=== PATIENT | female | born 1940 | race Caucasian/White ===

== ENCOUNTER 2018-07-28 09:53 | Emergency (ER) | payer MEDICARE ==
[~2018-07-28] VITALS: Ht 162.6 cm; Wt 53.5 kg
[2018-07-28 09:56] VITALS: Ht 162.6 cm; Wt 53.5 kg
--- NOTE | 2018-07-28 10:53 | ERD ---
ER Documentation Chief Complaint Chief Complaint palpitations with vomiting and head pain x 3 days HPI This is a 77-year-old woman complaining of chest discomfort and shortness of breath beginning Thursday, 3 days ago, shortly after a long drive back from [place]. She traveled here from [place] about 2 months ago but had no symptoms after air travel. Patient states since then she has had a mild nonproductive cough but no fevers or chills, no chest pain, no headache or blurry vision. Patient states today she felt a little bit weak and had mild shortness of breath and came here for evaluation. She denies calf or leg swelling, no history of blood clots, no abdominal pain, no hematemesis, no recent weight loss. Her primary care physician is in [place] and she is scheduled to fly out to [place] tomorrow noon. ROS All systems reviewed and are negative except as per history of present illness. Medications Home Meds Active Scripts Albuterol Sulfate* (Proair HFA*) 8.5 Gm Hfa.aer.ad, 2 PUFF INH Q6H PRN for WHEEZING AND SOB, #1 INHALER Prov:YADIRA COMER MD 07/28/18 Ibuprofen* (Motrin*) 600 Mg Tab, 600 MG PO Q8 PRN for PAIN AND/OR INFLAMMATION, #30 TAB Prov:YADIRA COMER MD 07/28/18 Azithromycin* (Zithromax*) 250 Mg Tablet, 250 MG PO .ZPACK DIRECTED, #6 TAB TAKE 500 MG (2 TABS) THE FIRST DAY THEN 250 MG (1 TAB) DAYS 2-5 Prov:YADIRA COMER MD 07/28/18 Reported Medications Levothyroxine Sodium* (Levoxyl*) 25 Mcg Tablet, 25 MCG PO BEFORE BREAKFAST, #30 TAB 07/28/18 Atorvastatin* (Atorvastatin*) 40 Mg Tablet, 40 MG PO QHS, #30 TAB 07/28/18 Allergies Allergies: Coded Allergies: No Known Allergy (Unverified , 07/28/18) PMhx/Soc Hypothyroidism, hypercholesterolemia History of Surgery: Yes (RT BREAST , LT OOPHORECTOMY ) Anesthesia Reaction: No Hx Neurological Disorder: No Hx Respiratory Disorders: No Hx Cardiac Disorders: Yes (HIGH CHOLESTEROL ) Hx Psychiatric Problems: No Hx Miscellaneous Medical Probl: No Hx Alcohol Use: Yes Hx Substance Use: No Hx Tobacco Use: No (QUIT 20 YEARS AGO ) Smoking Status: Former smoker FmHx Family History: diabetes Physical Exam Vitals Vital Signs Date Temp Pulse Resp B/P (MAP) Pulse Ox O2 O2 Flow FiO2 Time Delivery Rate 07/28/18 69 16 149/68 99 Room Air 12:42 (95) 07/28/18 79 16 126/63 99 Room Air 10:45 (84) 07/28/18 98.9 104 19 143/65 98 09:56 (91) Physical Exam GENERAL: Well-developed, well-nourished, well-hydrated, in no apparent distress, looks nontoxic in appearance HEENT: Moist mucous membranes, pink conjunctiva, no cervical spine tenderness or step-off deformities, no goiter, no jaundice or icterus, extraocular movements intact without pain. No submandibular induration, and no pharyngeal erythema NEURO: Alert and oriented 3, cranial nerves II through XII intact bilaterally, pupils equal round reactive to light, no focal deficits or facial asymmetry, sensation intact distally Strength 5/5 in upper and lower extremities bilaterally CARDIAC: Regular rate and rhythm, no murmurs rubs or gallops LUNGS: Clear bilaterally no wheezing crackles or stridor ABDOMEN: Soft nontender, no guarding, no rigidity, no rebound, no psoas sign no obturator sign. Normoactive bowel sounds SKIN: Warm and dry to touch, no abrasions, contusions, or hematomas, no lacerations, no ecchymosis, no target lesions, and without ulcers EXTREMITIES: No clubbing cyanosis or edema, calves are bilaterally symmetrical, no Homans sign, no popliteal cord sign. Distal pulses equal and bilateral PSYCH: Normal affect without agitation or irritability Result Diagram: 07/28/18 1030 07/28/18 1030 Results 24 hrs Laboratory Tests Test 07/28/18 10:30 White Blood Count 7.6 10^3/ul Red Blood Count 4.40 10^6/ul Hemoglobin 14.0 g/dl Hematocrit 42.2 % Mean Corpuscular Volume 95.9 fl Mean Corpuscular Hemoglobin 31.8 pg Mean Corpuscular Hemoglobin Concent 33.2 g/dl Red Cell Distribution Width 13.8 % Platelet Count 216 10^3/UL Mean Platelet Volume 10.5 fl Immature Granulocytes % 0.400 % Neutrophils % 83.0 % Lymphocytes % 9.3 % Monocytes % 6.6 % Eosinophils % 0.3 % Basophils % 0.4 % Nucleated Red Blood Cells % 0.0 /100WBC Immature Granulocytes # 0.030 10^3/ul Neutrophils # 6.3 10^3/ul Lymphocytes # 0.7 10^3/ul Monocytes # 0.5 10^3/ul Eosinophils # 0.0 10^3/ul Basophils # 0.0 10^3/ul Nucleated Red Blood Cells # 0.0 10^3/ul Prothrombin Time 12.5 Sec Prothrombin Time Ratio 1.0 INR International Normalized Ratio 0.92 Activated Partial Thromboplast Time 25.8 Sec Urine Color YELLOW Urine Clarity CLEAR Urine pH 5.0 Urine Specific [place] 1.016 Urine Ketones 1+ mg/dL Urine Nitrite NEGATIVE mg/dL Urine Bilirubin NEGATIVE mg/dL Urine Urobilinogen 2+ mg/dL Urine Leukocyte Esterase NEGATIVE Amara/ul Urine Hemoglobin NEGATIVE mg/dL Urine Glucose NEGATIVE mg/dL Urine Total Protein NEGATIVE mg/dl Sodium Level 137 mmol/L Potassium Level 3.0 mmol/L Chloride Level 92 mmol/L Carbon Dioxide Level 34 mmol/L Anion Gap 11 Blood Urea Nitrogen 16 mg/dl Creatinine 0.84 mg/dl Est Glomerular Filtrat Rate mL/min mL/min Glucose Level 155 mg/dl Calcium Level 9.0 mg/dl Total Bilirubin 1.9 mg/dl Direct Bilirubin 0.00 mg/dl Indirect Bilirubin 1.9 mg/dl Aspartate Amino Transf (AST/SGOT) 56 IU/L Alanine Aminotransferase (ALT/SGPT) 74 IU/L Alkaline Phosphatase 158 IU/L Troponin I < 0.012 ng/ml B-Type Natriuretic Peptide 822 PG/ML Total Protein 7.5 g/dl Albumin 3.9 g/dl Globulin 3.60 g/dl Albumin/Globulin Ratio 1.08 Lipase 76 U/L Current Medications Medications Dose Sig/Vinny Start Time Status Last (Trade) Ordered Route PRN Stop Time Admin Dose Reason Admin Sodium 500 ml @ Q1H STAT 07/28/18 DC 07/28/18 Chloride 500 mls/hr IV 11:10 11:37 07/28/18 12:09 Potassium 40 meq ONCE STAT 07/28/18 DC Chloride PO 12:41 (Klor-Con 20) 07/28/18 12:48 Magnesium 100 ml @ ONCE ONCE 07/28/18 Sulfate/ 100 mls/hr IVPB 13:00 Dextrose 07/28/18 13:59 Ceftriaxone 50 ml @ ONCE ONCE 07/28/18 Sodium 100 mls/hr IVPB 13:00 07/28/18 13:29 Procedures/MDM IV line was established patient was placed on personnel monitor rhythm strip revealed a sinus rhythm at about 80 bpm with upright P and T waves. Patient was afebrile EKG performed, read by me revealed a normal sinus rhythm 86 bpm, left axis deviation, narrow QRS complex, no concerning ST elevations or depressions noted I administered [address] angiogram of the chest was performed there is no aortic or other vascular abnormalities, no pulmonary embolism noted. There is a consolidation in the right middle lobe, please refer to radiologist dictation for full report. CBC was normal, electrolytes revealed hypokalemia, liver function tests revealed transaminitis, troponin negative, BNP elevated less than 1000. I administered o ral potassium supplementation, 1 g magnesium IV, and ceftriaxone 1 g IV. Given the patient's earlier symptoms and long distance travel tomorrow I will treat her with antibiotics here in the ER and wrote her for azithromycin times 5 days. I recommended she follow-up with her PMD when she gets back home, she will require further imaging and continued outpatient management, she agreed to this plan and understood instructions. Patient has no complaints of orthopnea and no dyspnea on exertion. Her vital signs are normal at this time and she is asymptomatic. Differential diagnoses considered, included but not limited to acute coronary syndrome, pulmonary embolism, aortic dissection, abdominal aortic aneurysm, sepsis, stroke, meningitis, encephalitis, pneumonia, appendicitis, cholecystitis, bowel obstruction, pyelonephritis, nephrolithiasis, cystitis, as well as metabolic, hematologic, and electrolyte abnormalities. As well as abscess, cellulitis, fractures, and dislocations. Patient feels much better at this time, and vital signs are normal, symptoms have improved. I did give strict instructions to return to the ED if symptoms continue or worsen, patient will otherwise follow-up with primary care physician. Patient understood instructions and agreed to plan. Disclaimer: Inadvertent spelling and grammatical errors are likely due to EHR/dictation software use and do not reflect on the overall quality of patient care. Also, please note that the electronic time recorded on this note does not necessarily reflect the actual time of the patient encounter. Departure Diagnosis: Primary Impression: Palpitations Additional Impressions: Cough Acute hypokalemia Chest pain Chest pain type: unspecified Qualified Codes: R07.9 - Chest pain, unspecified Condition: Good YADIRA COMER MD Jul 28, 2018 10:53
[2018-07-28] MEDS ORDERED: SOD CHLORIDE 0.9% 500 ML IV STA (11:10)
[2018-07-28] MEDS ORDERED: ATOR40TA68 PO (11:50)
[2018-07-28] MEDS ORDERED: LEVO25TA50 PO (11:50)
[2018-07-28] MEDS ORDERED: POTASSIUM CHLORIDE (SR) 20 MEQ TAB PO STA (12:41)
[2018-07-28] MEDS ORDERED: AZIT250T PO (12:49)
[2018-07-28] MEDS ORDERED: IBUP-1542 PO (12:49)
[2018-07-28] MEDS ORDERED: ALBU8.5H8 INH (12:49)
[2018-07-28] MEDS ORDERED: CEFTRIAXONE 1 GM/50 ML (PMX) 50 ML IVPB ONE (13:00)
[2018-07-28] MEDS ORDERED: MAGNESIUM SULFATE 1 GM/D5W 100 ML IVPB ONE (13:00)
[2018-07-28 14:49] VITALS: BP 132/78; PULSE 76; RESP 16
== END 2018-07-28 14:53 | disposition home or self-care (01) ==
LOC: E/R 09:53
DX: E87.6 Hypokalemia (principal); R07.9 Chest pain, unspecified; R05 Cough; R40.2142 Coma scale, eyes open, spontaneous, at arrival to emergency department; R40.2252 Coma scale, best verbal response, oriented, at arrival to emergency department; R40.2362 Coma scale, best motor response, obeys commands, at arrival to emergency department; E03.9 Hypothyroidism, unspecified; Z87.891 Personal history of nicotine dependence
CPT/HCPCS: 71275; 80053; 81003; 83690; 83880; 84484; 85025; 85610; 85730; 96361; 96365; 99285; J0696; J3475; J7040